=== PATIENT | female | born 1950 | race Caucasian/White ===

== ENCOUNTER → 2017-04-06 | Outpatient (CLI) | payer OTHER ==
[~2017-04-06] MED LIST: MELO7.5T4 PO
--- NOTE | 2017-04-06 10:46 | RSPPFT ---
DATE OF PROCEDURE: 04/06/17 COMMENTS: Spirometry with FVC of 3.0 at 114% of predicted, FEV1 of 1.9 at 90%, FEV1/FVC ratio is decreased. Flow is decreased at FEF 25, FEF 50 but normal at FEF 75 and FEF 25-75. There is a good response after bronchodilator treatment. Lung volumes show residual volume is normal. TLC is increased. Diffusion capacity is mildly decreased. Flow volume loop indicates terminal airways obstruction. IMPRESSION: 1. Mild small airways obstructive lung disease. 2. Good response after bronchodilator treatment. 3. Normal lung volumes. 4. Mild decrease in diffusion capacity.
== END ==
LOC: HRSP 09:16
PROVIDERS: ATTEND Specialist
DX: R06.00 Dyspnea, unspecified (principal)
CPT/HCPCS: 94060; 94726; 94729